=== PATIENT | male | born 2000 | race Two or more races ===

== ENCOUNTER 2021-03-01 23:37 | Emergency (ER) | payer OTHER ==
[~2021-03-01] VITALS: Ht 182.9 cm; Wt 61.2 kg
[2021-03-02] MEDS ORDERED: CEPHALEXIN500 MG PO (04:08)
[2021-03-02] MEDS ORDERED: MUPIROCIN22 GM TOP (04:08)
[2021-03-02] MEDS ORDERED: KETO10TA2 PO (04:08)
== END 2021-03-02 06:22 ==
LOC: ER 23:37
DX: S81.012A Laceration without foreign body, left knee, initial encounter (principal); S52.122A Displaced fracture of head of left radius, initial encounter for closed fracture; S50.02XA Contusion of left elbow, initial encounter; S90.02XA Contusion of left ankle, initial encounter; S80.02XA Contusion of left knee, initial encounter; V00.131A Fall from skateboard, initial encounter; Y93.89 Activity, other specified; Y92.89 Other specified places as the place of occurrence of the external cause; Y99.8 Other external cause status